=== PATIENT | female | born 1960 | race Asian ===

== ENCOUNTER 2024-03-16 09:43 | Outpatient (CLI) | payer BC | END 2024-03-16 09:44 | disposition home or self-care (01) | LOC: CSHMAMMO 09:43 | PROVIDERS: ATTEND Internal Medicine | DX: Z12.31 Encounter for screening mammogram for malignant neoplasm of breast (principal); Z13.820 Encounter for screening for osteoporosis; M85.89 Other specified disorders of bone density and structure, multiple sites; Z78.0 Asymptomatic menopausal state | CPT/HCPCS: 77063; 77067; 77080 ==

== ENCOUNTER 2024-04-07 08:25 | Outpatient (CLI) | payer BC ==
[2024-04-07] MEDS ORDERED: Iopamidol 370 76% 100 ML VIAL ONE (12:51)
== END 2024-04-07 08:26 | disposition home or self-care (01) ==
LOC: CSHCT 08:25
PROVIDERS: ATTEND Internal Medicine
DX: E27.8 Other specified disorders of adrenal gland (principal); K76.89 Other specified diseases of liver
CPT/HCPCS: 74170; 82565